=== PATIENT | female | born 1990 | race Two or more races ===

== ENCOUNTER 2022-09-30 14:08 | Emergency (ER) | payer MEDICAID ==
[~2022-09-30] VITALS: Ht 172.7 cm; Wt 72.6 kg
[2022-09-30 14:31] VITALS: BP 110/70
--- NOTE | 2022-09-30 14:38 | NUR ---
PT SEEN BY DR KIM FOR EVAL
--- NOTE | 2022-09-30 14:45 | NUR ---
RAD AT BEDSIDE
--- NOTE | 2022-09-30 15:41 | NUR ---
ACCUCHECK BS 104MG/DL
--- NOTE | 2022-09-30 15:55 | NUR ---
Patient discharged to home in stable condition. Written and verbal after care instructions given. Patient verbalizes understanding of instruction.
== END 2022-09-30 16:04 | disposition home or self-care (01) ==
LOC: ER 14:14
DX: M79.671 Pain in right foot (principal)
CPT/HCPCS: 73630-TC; 82962-TC

== ENCOUNTER 2022-11-20 12:42 | Emergency (ER) | payer MEDICAID ==
[~2022-11-20] VITALS: Ht 170.2 cm; Wt 70.3 kg
[2022-11-20 12:47] VITALS: BP 110/71
[2022-11-20] MEDS ORDERED: BENZ-13 PO (14:09)
[2022-11-20] MEDS ORDERED: IBUP-1955 PO (14:09)
[2022-11-20] MEDS ORDERED: MUPI22OI2 TP (14:09)
== END 2022-11-20 14:16 | disposition home or self-care (01) ==
LOC: ER 12:56
DX: J06.9 Acute upper respiratory infection, unspecified (principal); R05.9 Cough, unspecified; L73.9 Follicular disorder, unspecified